=== PATIENT | female | born 1980 | race African-American/Black ===

== ENCOUNTER 2024-07-18 12:52 | Inpatient (IN) | payer OTHER ==
[2024-07-18 13:42] VITALS: BMI 17.7
[2024-07-18] MEDS ORDERED: NICOTINE POLACRILEX 2 MG GUM BUC PRN (13:44)
[2024-07-18] MEDS ORDERED: BENZONATATE 200 MG CAPSULE PO PRN (13:44)
[2024-07-18] MEDS ORDERED: ONDANSETRON *ODT* 4 MG TABLET SL PRN (13:44)
[2024-07-18] MEDS ORDERED: diazePAM 5 MG TABLET PO PRN (13:44)
[2024-07-18] MEDS ORDERED: NALOXONE (NARCAN) HCL 4 MG/0.1 ML SPRAY NS PRN (13:44)
[2024-07-18] MEDS ORDERED: ACETAMINOPHEN 325 MG TABLET (FP) PO PRN (13:44)
[2024-07-18] MEDS ORDERED: guaiFENesin 600 MG TABLET.ER (FP) PO PRN (13:44)
[2024-07-18] MEDS ORDERED: BENZOCAINE/MENTHOL (CHLORASEPTIC ) LOZENGE MM PRN (13:44)
[2024-07-18] MEDS ORDERED: POLYETHYLENE GLYCOL (HEALTHYLAX) 3350 17 GM PACKET PO PRN (13:44)
[2024-07-18] MEDS ORDERED: DICYCLOMINE HCL 10 MG CAPSULE PO PRN (13:44)
[2024-07-18] MEDS ORDERED: IBUPROFEN 400 MG TABLET (FP) PO PRN (13:44)
[2024-07-18] MEDS ORDERED: BISMUTH SUBSALICYLATE 262 MG/15 ML BTL PO PRN (13:44)
[2024-07-18] MEDS ORDERED: LOPERAMIDE HCL 2 MG CAPSULE PO PRN (13:44)
[2024-07-18] MEDS ORDERED: methaDONE HCL 10 MG TABLET (FOR DETOX USE ONLY) ONE (14:12)
[2024-07-18] MEDS ORDERED: HYDROCHLOROTHIAZIDE 12.5 MG CAPSULE (FP) ONE (14:13)
[2024-07-18] MEDS ORDERED: cloNIDine HCL 0.1 MG TABLET ONE (14:13)
[2024-07-18] MEDS: methaDONE HCL 10 MG TABLET PO ONE (14:16)
[2024-07-18] MEDS: cloNIDine HCL 0.1 MG TABLET PO SCH (14:16)
[2024-07-18] MEDS: HYDROCHLOROTHIAZIDE 12.5 MG CAPSULE (FP) PO SCH (14:16)
[2024-07-18] MEDS ORDERED: methaDONE HCL 10 MG TABLET PO PRN (15:44)
[2024-07-18] MEDS: diazePAM 5 MG TABLET PO SCH (18:06)
[2024-07-18 18:08] LABS: HIV INTERPRETATION NEGATIVE (NEGATIVE)
[2024-07-18] MEDS: levETIRAcetam 500 MG TABLET (FP) PO SCH (23:01)
[2024-07-18] MEDS: MIRTAZAPINE 15 MG TABLET (FP) PO SCH (23:01)
[2024-07-18] MEDS: THIAMINE 100 MG TABLET PO SCH (23:01)
[2024-07-18] MEDS: MELATONIN 5 MG TABLETS PO SCH (23:01)
[2024-07-18] MEDS: CLOTRIMAZOLE 1% CREAM TP SCH (23:02)
[2024-07-19] MEDS: PRENATAL VITAMINS W/ FOLIC ACID TABLET (FP) PO SCH (10:29)
[2024-07-19] MEDS: methaDONE 40 MG, methaDONE 10 MG PO ONE (10:31)
[2024-07-19 15:21] LABS: HEMATOCRIT 42.6 % (32.4-45.2); HEMOGLOBIN 13.4 GM/dL (10.7-15.3); MCH 27.7 pg (25.7-33.7); MCHC 31.4 g/dl (32.0-36.0); MEAN CELL VOLUME 88.4 fl (80-96); PLATELET COUNT 351 10^3/uL (134-434); RBC 4.82 M/mm3 (3.60-5.2); RDW 16.3 % (11.6-15.6); WHITE BLOOD COUNT 7.9 K/mm3 (4.0-10.0)
[2024-07-19 15:28] LABS: POTASSIUM 3.8 mmol/L (3.5-5.1)
[2024-07-19 15:33] LABS: CALCIUM 9.4 mg/dL (8.5-10.1)
[2024-07-19 15:34] LABS: ALBUMIN 3.4 g/dl (3.4-5.0); BLOOD UREA NITROGEN 11.7 mg/dL (7-18)
[2024-07-19 15:37] LABS: CREATININE 0.9 mg/dL (0.55-1.3)
[2024-07-19 15:38] LABS: BILIRUBIN,TOTAL 0.9 mg/dL (0.2-1)
[2024-07-19 15:41] LABS: TOT PROT 7.9 g/dl (6.4-8.2)
[2024-07-19] MEDS ORDERED: diazePAM 5 MG TABLET PO PRN (16:28)
[2024-07-19] MEDS: metFORMIN HCL 500 MG TABLET (FP) PO SCH (16:49)
[2024-07-19] MEDS: INSULIN ASPART SLIDING SCALE (NOVOLOG) 1 VIAL SQ SCH (16:50)
[2024-07-19] MEDS: diazePAM 5 MG TABLET PO SCH (17:18)
[2024-07-19] MEDS: METHOCARBAMOL 500 MG TABLET PO PRN (22:43)
[2024-07-19] MEDS: MAGNESIUM HYDROX 2400MG/30ML ORAL SUSPENSION 30 ML CUP PO PRN (22:47)
[2024-07-20] MEDS ORDERED: cloNIDine HCL 0.1 MG TABLET PO PRN
[2024-07-20] MEDS ORDERED: diazePAM 5 MG TABLET PO SCH (06:00)
[2024-07-20] MEDS: diazePAM 5 MG TABLET PO SCH (06:00)
[2024-07-20] MEDS: methaDONE 40 MG, methaDONE 10 MG PO ONE (09:24)
[2024-07-20] MEDS: hydrOXYzine PAMOATE 25 MG CAPSULE (FP) PO PRN (09:24)
[2024-07-20] MEDS ORDERED: methaDONE HCL 40 MG DISPERSABLE TABLET PO ONE (10:00)
[2024-07-20] MEDS ORDERED: methaDONE 40 MG, methaDONE 20 MG PO ONE (10:00)
[2024-07-20] MEDS: QUEtiapine FUMARATE 50 MG TABLET PO SCH (22:45)
[2024-07-21] MEDS: diazePAM 5 MG TABLET PO SCH ×2 (06:14→17:46)
[2024-07-21] MEDS ORDERED: methaDONE HCL 40 MG DISPERSABLE TABLET PO ONE (10:00)
[2024-07-21] MEDS ORDERED: methaDONE 40 MG, methaDONE 30 MG PO ONE (10:00)
[2024-07-21] MEDS: methaDONE 40 MG, methaDONE 10 MG PO ONE (10:22)
[2024-07-21] MEDS: MAG HYDROX/AL HYDROX/SIMETH 30 ML UNIT-DOSE CUP PO PRN (17:44)
[2024-07-22] MEDS: diazePAM 5 MG TABLET PO ONE (06:00)
[2024-07-22] MEDS ORDERED: methaDONE HCL 40 MG DISPERSABLE TABLET PO ONE ×3 (10:00)
[2024-07-22] MEDS ORDERED: methaDONE 40 MG, methaDONE 10 MG PO ONE (10:00)
[2024-07-23] MEDS: IBUPROFEN 600 MG TABLET (FP) PO PRN (09:49)
[2024-07-23] MEDS ORDERED: methaDONE 40 MG, methaDONE 10 MG PO ONE (10:00)
[2024-07-23] MEDS ORDERED: methaDONE HCL 40 MG DISPERSABLE TABLET PO ONE ×2 (10:00)
[2024-07-23] MEDS ORDERED: methaDONE 80 MG, methaDONE 10 MG PO ONE (10:00)
[2024-07-24] MEDS ORDERED: levETIRAcetam 250 MG TABLET PO ONE (22:47)
[2024-07-25 07:20] VITALS: TEMP 97.6
[2024-07-25 09:31] VITALS: BP 113/79; PULSE 88; RESP 18
[2024-07-25] MEDS ORDERED: levETIRAcetam 250 MG TABLET PO ONE (09:47)
[2024-07-25] MEDS ORDERED: methaDONE HCL 40 MG DISPERSABLE TABLET PO ONE ×2 (10:00)
== END 2024-07-25 10:25 | disposition home or self-care (01) | DRG 773 ==
LOC: YASAS 12:52 → Y6N 14:14
PROVIDERS: ADMIT Allergy & Immunology; ATTEND Allergy & Immunology
PROC: HZ2ZZZZ Detoxification Services for Substance Abuse Treatment (ICD-10-PCS; principal; 2024-07-18)
DX: F13.230 Sedative, hypnotic or anxiolytic dependence with withdrawal, uncomplicated (principal); F11.20 Opioid dependence, uncomplicated; F14.20 Cocaine dependence, uncomplicated; F17.210 Nicotine dependence, cigarettes, uncomplicated; F19.24 Other psychoactive substance dependence with psychoactive substance-induced mood disorder; F31.9 Bipolar disorder, unspecified; F41.9 Anxiety disorder, unspecified; R73.03 Prediabetes; Z88.0 Allergy status to penicillin; Z86.2 Personal history of diseases of the blood and blood-forming organs and certain disorders involving the immune mechanism
CPT/HCPCS: 36415; 73630-TC-LT; 80053; 80305; 80307; 81025; 82962; 83036; 85027; 86780; 86803; 87389; 87522; 93005; 93010